=== PATIENT | male | born 1935 | race Caucasian/White ===

== ENCOUNTER 2018-07-17 10:03 | Emergency (ER) | payer MEDICARE, OTHER ==
[~2018-07-17] VITALS: Ht 170.2 cm; Wt 75.3 kg
[~2018-07-17 10:03] MED LIST: ECOTRIN325 MG PO; EULEXIN 125 MG125 MG PO; FLOMAX0.4 MG PO; MEN'S MULTI-VI1 EACH PO; METFORMIN HCL500 MG PO; NIACIN 500 MG500 M1 PO; TENORMIN50 MG PO
[2018-07-17 11:26] LABS: ABSOLUTE BASOPHILS 0.1 thou/uL (0.0-0.2); ABSOLUTE EOSINOPHILS 0.5 thou/uL (0.0-0.7); ABSOLUTE LYMPHOCYTES 1.8 thou/uL (0.8-5.3); ABSOLUTE MONOCYTES 0.9 thou/uL (0.0-1.2); ABSOLUTE NEUTROPHILS 6.3 thou/uL (1.6-8.1); BASOPHILS 1.1 %; EOSINOPHILS 5.1 %; HEMATOCRIT 36.1 % (42.0-52.0); HEMOGLOBIN 12.2 gm/dL (14.0-18.0); LYMPHOCYTES 18.3 %; MCHC 33.8 g/dL (28.0-37.0); MCV 91.9 fL (80.0-100.0); MONOCYTES 9.6 %; MPV 7.9 fl. (7.2-11.1); NUCLEATED RBCS 0 /100WBC; PLATELET COUNT* 270 thou/uL (150-400); POLYS 65.9 %; RBC 3.93 mil/uL (4.50-6.00); RDW-CV 14.5 % (10.5-14.5); WBC 9.6 thou/uL (4.0-11.0)
[2018-07-17] MEDS ORDERED: ACETAMINOPHEN-1 EAC1 PO (12:03)
[2018-07-17] MEDS ORDERED: PREDNISONE 20 M20 MG PO (12:03)
[2018-07-17 12:14] VITALS: BP 163/64
[2018-07-17 12:30] LABS: ESR (SEDRATE) 40 mm/hr (0-20)
== END 2018-07-17 12:15 | disposition home or self-care (01) ==
LOC: M.ERS 10:03
PROVIDERS: Nurse Practitioner Psychiatric/Mental Health
DX: M25.462 Effusion, left knee (principal); M25.562 Pain in left knee; I10 Essential (primary) hypertension; I25.10 Atherosclerotic heart disease of native coronary artery without angina pectoris; E78.00 Pure hypercholesterolemia, unspecified; E11.9 Type 2 diabetes mellitus without complications; Z87.442 Personal history of urinary calculi; Z85.46 Personal history of malignant neoplasm of prostate